=== PATIENT | female | born 1990 | race Caucasian/White ===

== ENCOUNTER 2024-03-26 23:41 | Emergency (ER) | payer MEDICAID | END 2024-03-27 00:01 | disposition left against medical advice (07) | LOC: SED 23:41 | DX: O26.891 Other specified pregnancy related conditions, first trimester (principal); R10.9 Unspecified abdominal pain; Z3A.10 10 weeks gestation of pregnancy; Z53.21 Procedure and treatment not carried out due to patient leaving prior to being seen by health care provider ==

== ENCOUNTER 2024-03-27 23:03 | Emergency (ER) | payer MEDICAID ==
[~2024-03-27] VITALS: Ht 177.8 cm; Wt 90.7 kg
[2024-03-27 23:15] VITALS: BP_SYST 128; PULSE 106; RESP 20; TEMP 98.3; O2SAT 99
== END 2024-03-28 01:00 | disposition left against medical advice (07) ==
LOC: SED 23:03
DX: O26.891 Other specified pregnancy related conditions, first trimester (principal); R10.9 Unspecified abdominal pain; Z3A.10 10 weeks gestation of pregnancy; Z53.21 Procedure and treatment not carried out due to patient leaving prior to being seen by health care provider